=== PATIENT | male | born 1980 | race American Indian/Alaskan Native ===

== ENCOUNTER 2016-11-16 10:25 | Emergency (ER) | payer OTHER ==
[2016-11-16 10:26] VITALS: BMI 23.5
[2016-11-16 10:38] VITALS: O2SAT 98
[2016-11-16 10:46] VITALS: BP 119/68; PULSE 92; RESP 18; TEMP 98.4
--- NOTE | 2016-11-16 11:21 | RAD ---
PROCEDURE: Left Foot Radiographs. HISTORY: foot injury COMPARISON: None. FINDINGS: BONES: Normal. No fracture. JOINTS: Normal. SOFT TISSUES: Normal. OTHER FINDINGS: None. IMPRESSION: Normal left foot radiographs.
--- NOTE | 2016-11-16 11:47 | ED PDOC ---
Lower Extremity Pain/Injury Time Seen by Provider: 11/16/16 10:39 Chief Complaint (Nursing): Lower Extremity Problem/Injury Chief Complaint (Provider): right foot History Per: Patient History/Exam Limitations: no limitations Additional Complaint(s): 36yo M in ED for two c/o of right foot injury noted yesterday after stepping "wrong" and feeling pain only with touch to plantar surface, no open wound pt aslo c/o of left foot fungal infection x 1month and unable to relieved himself if itching. - Risk Factors DVT Risk Factors: Pos: None Past Medical History Reviewed: Historical Data, Nursing Documentation, Vital Signs Vital Signs: Last Vital Signs Temp 98.4 F 11/16/16 10:45 Pulse 92 H 11/16/16 10:45 Resp 18 11/16/16 10:45 BP 119/68 11/16/16 10:45 Pulse Ox 98 11/16/16 10:45 - Medical History PMH: Bronchitis ("HOSPITALIZED A TEEN"), Cardia Arrhythmia (" I HAVE AN IRREGULAR HEART BEAT-SKIPS") Denies: Chronic Kidney Disease - Family History Family History: States: Unknown Family Hx - Home Medications Home Medications: Ambulatory Orders Medication Instructions Recorded Butenafine HCl [Lotrimin Ultra] 30 gm TP DAILY #1 cream..g. 11/16/16 Menthol [Gold Adkins Medicated Foot] 283 gm TP DAILY #1 powder 11/16/16 - Allergies Allergies/Adverse Reactions: Allergies Allergy/AdvReac Type Severity Reaction Status Date / Time No Known Allergies Allergy Verified 11/16/16 11:09 Review of Systems ROS Statement: Except As Marked, All Systems Reviewed And Found Negative Musculoskeletal: Positive for: Foot Pain Physical Exam - Reviewed Nursing Documentation Reviewed: Yes Vital Signs Reviewed: Yes - Physical Exam Appears: Positive for: Well, Non-toxic, No Acute Distress Head Exam: Positive for: ATRAUMATIC, NORMAL INSPECTION, NORMOCEPHALIC Cardiovascular/Chest: Positive for: Regular Rate, Rhythm Respiratory: Positive for: CNT, Normal Breath Sounds Extremity: Positive for: Other (lkeft foot: fungal infection noted. right foot: tender to plantar surface, FROM no open wounds. ) Neurologic/Psych: Positive for: Alert, Oriented - ECG O2 Sat by Pulse Oximetry: 98 - Radiology X-Ray: Interpreted by Me, Read By Radiologist X-Ray Interpretation: No Acute Disease Medical Decision Making Medical Decision Making: dx: contusion to right foot-=surgical shoe placed, advised to take motrin rest and ice. dx: athletes foot-will be given lotrimin and gold adkins powder f/u with podiatry Disposition - Clinical Impression Clinical Impression: Foot contusion, Athletes foot - Patient ED Disposition Is Patient to be Admitted: No Counseled Patient/Family Regarding: Studies Performed, Diagnosis, Need For Followup, Rx Given - Disposition Referrals: Podiatry Clinic [Outside] Disposition: Routine/Home Disposition Time: 11:48 Condition: STABLE Prescriptions: Butenafine HCl [Lotrimin Ultra] 30 gm TP DAILY #1 cream..g. Menthol [Gold Adkins Medicated Foot] 283 gm TP DAILY #1 powder Instructions: Antifungals (On the skin)
== END 2016-11-16 12:08 | disposition home or self-care (01) ==
LOC: H.ER 10:25
DX: B35.3 Tinea pedis (principal); S90.31XA Contusion of right foot, initial encounter; X50.9XXA Other and unspecified overexertion or strenuous movements or postures, initial encounter; Y92.003 Bedroom of unspecified non-institutional (private) residence as the place of occurrence of the external cause